=== PATIENT | female | born 1960 ===

== ENCOUNTER 2017-11-25 10:15 | Day surgery (SDC) | payer BC ==
[2017-11-22 14:32] VITALS: BMI 25.7
[2017-11-25] MEDS ORDERED: Propofol 10 mg/ml Inj (20 ML) ONE (11:17)
[2017-11-25 12:29] VITALS: RESP 12
[2017-11-25 12:47] VITALS: BP 120/72; PULSE 70; TEMP 97.1; O2SAT 98
== END 2017-11-25 12:45 | disposition home or self-care (01) ==
LOC: C.ENDO 10:15
PROVIDERS: ATTEND Internal Medicine
DX: Z12.11 Encounter for screening for malignant neoplasm of colon (principal); D12.5 Benign neoplasm of sigmoid colon
CPT/HCPCS: 45380; 88305; J2704

== ENCOUNTER 2019-01-21 09:38 | Outpatient (CLI) | payer BC | END 2019-01-21 09:39 | disposition home or self-care (01) | LOC: C.MAMMO 09:38 | DX: N63.0 Unspecified lump in unspecified breast (principal); Z13.820 Encounter for screening for osteoporosis ==